=== PATIENT | female | born 1945 | race Hispanic/Latino ===

== ENCOUNTER → 2021-06-25 | Day surgery (SDC) | payer OTHER ==
[2021-06-22 10:57] LABS: BASOPHILS # (AUTO) 0.1 (0.0-0.1); BASOPHILS % 0.4 % (0.0-1.0); EOSINOPHILS # (AUTO) 0.2 (0.0-0.4); EOSINOPHILS % 1.9 % (0.0-6.0); LYMPHOCYTES # (AUTO) 2.1 (1.0-3.2); LYMPHOCYTES % 17.5 % (18.0-39.1); MEAN CORPUSCULAR HEMOGLOBIN 28.2 pg (28-32); MEAN CORPUSCULAR HGB CONC 31.4 g/dL (31-35); MEAN CORPUSCULAR VOLUME 89.7 fL (81-99); MONOCYTES # (AUTO) 1.1 (0.2-0.8); MONOCYTES % 9.2 % (4.4-11.3); NEUTROPHILS # (AUTO) 8.4 (2.1-6.9); NEUTROPHILS % 70.1 % (38.7-80.0); PLATELET COUNT 203 x10e3/uL (140-360); RED CELL DISTRIBUTION WIDTH 14.8 % (11.7-14.4)
[2021-06-22 11:13] LABS: ANION GAP 19.7 mmol/L (8-16); CALCIUM 9.2 mg/dL (8.4-10.2); CREATININE, SERUM 0.99 mg/dL (0.57-1.11)
[2021-06-22 11:22] LABS: POTASSIUM 6.7 mmol/L (3.5-5.1)
[~2021-06-25] MED LIST: ACETAMINOPHEN/CODEINE 300MG - 30MG TAB ONE; CLINDAMYCIN 600MG / 50ML 50 ML IV ONE; EUTHYROX100 MCG; FENTANYL CITRATE/PF 100MCG/2 ML INJ ONE; GLIPIZIDE5 MG PO; HYDROMORPHONE 1MG/1ML INJ ONE; HYDROXYZINE HCL25 MG PO; INSULIN GLARGINE; LEVOTHYROXINE88 MCG PO; LOSARTAN POTASS25 MG PO; METFORMIN HCL500 MG PO; MORPHINE SULFATE INJ 2 MG/ML SYR ONE; ONDANSETRON HCL 4 MG ORAL DISINTEGRATING TAB ONE; PROTONIX20 MG PO; SIMVASTATIN20 MG PO; SYNTHROID88 MCG PO; TYLENOL EXTRA500 MG PO; UNKNOWN ANTIBIOTIC PO; VASOTEC10 M1
[2021-06-25 10:35] LABS: POTASSIUM 5.4 mmol/L (3.5-5.1)
[2021-06-25 14:18] VITALS: BP 161/66
== END | disposition home or self-care (01) ==
LOC: OR 09:18
PROVIDERS: ATTEND Specialist
DX: S52.562A Barton's fracture of left radius, initial encounter for closed fracture (principal); S52.561A Barton's fracture of right radius, initial encounter for closed fracture; M80.032A Age-related osteoporosis with current pathological fracture, left forearm, initial encounter for fracture; M80.031A Age-related osteoporosis with current pathological fracture, right forearm, initial encounter for fracture; E03.9 Hypothyroidism, unspecified; E11.9 Type 2 diabetes mellitus without complications; K21.9 Gastro-esophageal reflux disease without esophagitis; Z87.440 Personal history of urinary (tract) infections; Z87.898 Personal history of other specified conditions; I10 Essential (primary) hypertension; E78.00 Pure hypercholesterolemia, unspecified; Z88.1 Allergy status to other antibiotic agents; J45.909 Unspecified asthma, uncomplicated; Z01.810 Encounter for preprocedural cardiovascular examination; Z01.812 Encounter for preprocedural laboratory examination; Z20.822 Contact with and (suspected) exposure to COVID-19
CPT/HCPCS: 25606; 36415 ×2; 71046; 76000; 80048; 82947; 84132; 85025; C1713; J1170; J2270; J3010; Q0162; U0002

== ENCOUNTER 2021-10-01 16:00 | Outpatient (RCR) | payer OTHER ==
[~2021-10-01 16:00] MED LIST changes: -ACETAMINOPHEN/CODEINE 300MG - 30MG TAB ONE; -CLINDAMYCIN 600MG / 50ML 50 ML IV ONE; -FENTANYL CITRATE/PF 100MCG/2 ML INJ ONE; -HYDROMORPHONE 1MG/1ML INJ ONE; -MORPHINE SULFATE INJ 2 MG/ML SYR ONE; -ONDANSETRON HCL 4 MG ORAL DISINTEGRATING TAB ONE
== END 2021-10-02 ==
LOC: OT 16:00
PROVIDERS: ATTEND Specialist
DX: Z47.89 Encounter for other orthopedic aftercare (principal); S52.562D Barton's fracture of left radius, subsequent encounter for closed fracture with routine healing; S52.561D Barton's fracture of right radius, subsequent encounter for closed fracture with routine healing; M80.00XD Age-related osteoporosis with current pathological fracture, unspecified site, subsequent encounter for fracture with routine healing; M25.531 Pain in right wrist; M25.532 Pain in left wrist; M25.641 Stiffness of right hand, not elsewhere classified; M25.642 Stiffness of left hand, not elsewhere classified; M25.631 Stiffness of right wrist, not elsewhere classified; R53.1 Weakness

== ENCOUNTER 2021-10-10 11:12 | Outpatient (RCR) | payer OTHER | END 2021-11-02 | LOC: OT 11:12 | PROVIDERS: ATTEND Specialist | DX: S52.562D Barton's fracture of left radius, subsequent encounter for closed fracture with routine healing (principal); S52.561D Barton's fracture of right radius, subsequent encounter for closed fracture with routine healing ==